=== PATIENT | female | born 1950 | race Caucasian/White ===

== ENCOUNTER 2017-08-31 08:54 | Outpatient (CLI) | payer OTHER | END 2017-08-31 09:00 | disposition home or self-care (01) | LOC: LAB 08:54 | DX: E03.8 Other specified hypothyroidism (principal); R10.32 Left lower quadrant pain; E78.2 Mixed hyperlipidemia; D50.8 Other iron deficiency anemias ==

== ENCOUNTER → 2017-08-31 | Outpatient (CLI) | payer OTHER ==
[~2017-08-31] MED LIST: ASA81 MG PO; DILTIAZEM ER360 MG PO; SYNTHROID100 MCG PO
== END | disposition home or self-care (01) ==
LOC: SONOGRAMA 10:00
DX: R10.13 Epigastric pain (principal)

== ENCOUNTER 2017-11-02 09:44 | Outpatient (CLI) | payer OTHER | END 2017-11-02 09:53 | disposition home or self-care (01) | LOC: LAB 09:44 | DX: B96.81 Helicobacter pylori [H. pylori] as the cause of diseases classified elsewhere (principal); A49.8 Other bacterial infections of unspecified site ==

== ENCOUNTER 2017-11-02 11:01 | Outpatient (CLI) | payer OTHER | END 2017-11-02 11:05 | disposition home or self-care (01) | LOC: MAMO-SONO 11:01 | DX: Z12.31 Encounter for screening mammogram for malignant neoplasm of breast (principal); Z87.898 Personal history of other specified conditions; N62 Hypertrophy of breast ==

== ENCOUNTER → 2018-05-20 06:38 | Outpatient (CLI) | payer OTHER | END | disposition home or self-care (01) | LOC: LAB 06:38 | DX: I10 Essential (primary) hypertension (principal); E11.9 Type 2 diabetes mellitus without complications; E03.8 Other specified hypothyroidism; E78.2 Mixed hyperlipidemia; M81.0 Age-related osteoporosis without current pathological fracture; N39.0 Urinary tract infection, site not specified ==

== ENCOUNTER 2018-05-23 07:24 | Outpatient (CLI) | payer OTHER | END 2018-05-23 07:33 | disposition home or self-care (01) | LOC: NUCLEAR 07:24 | DX: I10 Essential (primary) hypertension (principal); I52 Other heart disorders in diseases classified elsewhere; I67.89 Other cerebrovascular disease ==

== ENCOUNTER 2018-06-01 07:11 | Outpatient (CLI) | payer OTHER | END 2018-06-01 07:27 | disposition home or self-care (01) | LOC: TOM 07:11 | DX: R51 Headache (principal); I10 Essential (primary) hypertension | CPT/HCPCS: 70460; Q9965 ==

== ENCOUNTER → 2019-01-11 07:45 | Outpatient (CLI) | payer OTHER | END | disposition home or self-care (01) | LOC: LAB 07:45 | DX: E03.8 Other specified hypothyroidism (principal); I10 Essential (primary) hypertension; E11.9 Type 2 diabetes mellitus without complications; E78.2 Mixed hyperlipidemia; Z12.11 Encounter for screening for malignant neoplasm of colon; M81.0 Age-related osteoporosis without current pathological fracture ==

== ENCOUNTER 2019-01-12 11:47 | Outpatient (CLI) | payer OTHER | END 2019-01-12 11:55 | disposition home or self-care (01) | LOC: LAB 11:47 | DX: E03.8 Other specified hypothyroidism (principal); I10 Essential (primary) hypertension; E11.9 Type 2 diabetes mellitus without complications; Z12.11 Encounter for screening for malignant neoplasm of colon; M81.0 Age-related osteoporosis without current pathological fracture ==

== ENCOUNTER → 2019-01-26 | Outpatient (CLI) | payer OTHER | END | disposition home or self-care (01) | LOC: RAD 09:51 | DX: M19.90 Unspecified osteoarthritis, unspecified site (principal) ==

== ENCOUNTER 2019-02-10 10:21 | Outpatient (CLI) | payer OTHER | END 2019-02-10 10:22 | disposition home or self-care (01) | LOC: NUCLEAR 10:21 | DX: M81.0 Age-related osteoporosis without current pathological fracture (principal) ==

== ENCOUNTER → 2019-05-19 07:05 | Outpatient (CLI) | payer OTHER | END | disposition home or self-care (01) | LOC: LAB 07:05 | DX: E11.9 Type 2 diabetes mellitus without complications (principal); E03.8 Other specified hypothyroidism; E78.2 Mixed hyperlipidemia; I10 Essential (primary) hypertension ==

== ENCOUNTER → 2019-05-30 | Outpatient (CLI) | payer OTHER | END | disposition home or self-care (01) | LOC: RAD 09:03 → MAMO-SONO 09:45 | DX: N63.11 Unspecified lump in the right breast, upper outer quadrant (principal); E03.8 Other specified hypothyroidism; J44.9 Chronic obstructive pulmonary disease, unspecified; Z12.31 Encounter for screening mammogram for malignant neoplasm of breast; E04.2 Nontoxic multinodular goiter ==

== ENCOUNTER 2021-06-16 09:00 | Outpatient (CLI) | payer OTHER | END 2021-06-16 09:15 | disposition home or self-care (01) | LOC: PPH VACUNA 09:00 | PROVIDERS: ATTEND Emergency Medicine Pediatric Emergency Medicine | DX: Z23 Encounter for immunization (principal) ==

== ENCOUNTER 2021-10-02 09:03 | Outpatient (CLI) | payer OTHER | END 2021-10-02 09:20 | disposition home or self-care (01) | LOC: MAMO-SONO 09:03 | PROVIDERS: ATTEND Internal Medicine Cardiovascular Disease | DX: N63.11 Unspecified lump in the right breast, upper outer quadrant (principal) ==

== ENCOUNTER 2021-10-07 11:10 | Outpatient (CLI) | payer OTHER | END 2021-10-07 11:12 | disposition home or self-care (01) | LOC: NUCLEAR 11:10 | PROVIDERS: ATTEND Internal Medicine Cardiovascular Disease | DX: M81.0 Age-related osteoporosis without current pathological fracture (principal) ==

== ENCOUNTER 2023-09-01 08:07 | Outpatient (CLI) | payer OTHER | END 2023-09-01 08:09 | disposition home or self-care (01) | LOC: NUCLEAR 08:07 | PROVIDERS: ATTEND Physical Medicine & Rehabilitation | DX: I73.9 Peripheral vascular disease, unspecified (principal); I87.2 Venous insufficiency (chronic) (peripheral) ==

== ENCOUNTER 2023-09-03 08:50 | Outpatient (CLI) | payer OTHER | END 2023-09-03 08:51 | disposition home or self-care (01) | LOC: NUCLEAR 08:50 | PROVIDERS: ATTEND Physical Medicine & Rehabilitation | DX: I73.9 Peripheral vascular disease, unspecified (principal); I87.2 Venous insufficiency (chronic) (peripheral) ==

== ENCOUNTER 2024-03-18 07:27 | Emergency (ER) | payer OTHER ==
[~2024-03-18] VITALS: Ht 165.1 cm; Wt 65.8 kg
[2024-03-18] MEDS ORDERED: CRESTOR40 MG (07:47)
== END 2024-03-18 09:46 | disposition home or self-care (01) ==
LOC: ER 07:27
DX: M79.672 Pain in left foot (principal); Z88.8 Allergy status to other drugs, medicaments and biological substances